=== PATIENT | female | born 1955 | race Caucasian/White ===

== ENCOUNTER → 2020-05-18 13:01 | Outpatient (CLI) | payer OTHER, SELFPAY ==
--- NOTE | 2020-05-18 | DI.US.S_ITS ---
PROCEDURE: US EXTREMITY NONVASC LOWER RT INDICATIONS: RIGHT LEG MASS TECHNIQUE: Real-time scanning was performed of the right calf , with image documentation. COMPARISON: None. FINDINGS: No visible fluid collection or mass seen in the region of interest involving the palpable abnormality of the right calf. IMPRESSION: No sonographic abnormality. Dictated by: Vern NOLAN Interpreted: José Miguel Crane MD on 05/18/2020 at 14:11 Approved by: José Miguel Crane M.D. on 05/18/2020 at 14:43
== END ==
PROVIDERS: PCP Physician Assistant Medical; Referring Provider Physician Assistant Medical; Visit Provider Physician Assistant Medical
DX: R22.41 Localized swelling, mass and lump, right lower limb (principal)
CPT/HCPCS: 76882